=== PATIENT | male | born 1970 ===

== ENCOUNTER 2016-09-07 17:58 | Emergency (ER) | payer OTHER ==
--- NOTE | 2016-09-07 22:17 | ED ORDER SUMMARY ---
..... Patient: PHILIPP SALAZAR OrderSheet Formerly [facility] VisitID: [id number] [place] [address] 46y, M Registration Date/Time: 09/07/2016 ORDER SHEET Weight: 86.1 kg (stated) Allergies: Hydrocodone GENERAL ORDERS: CBC w Diff Urgent (20:52 09/07/2016 Asad Ortiz) (Ack 21:00 RKskyler) (22:02 HSoule) CMP Urgent (20:52 09/07/2016 Asad Ortiz) (Ack 21:00 Taduga) (22:02 HSoule) UA-Culture if indicated Urgent (20:52 09/07/2016 Asad Ortiz) (Ack 21:00 Taduga) (Cancelled: Patient Left22:36 HSoule) Amylase Urgent (20:52 09/07/2016 Asad Ortiz) (Ack 21:00 Bing) (22:02 HSoule) Lipase Urgent (20:52 09/07/2016 Asad Ortiz) (Ack 21:00 Taduga) (22:02 HSoule) MEDICATION ORDERS: GI Cocktail RED PO 35 mL with Lidocaine Viscous Mouth/Throat 10 mL, Diphenhydramine Oral 10 mL, Maalox Plus Oral 15 mL (NOW) (19:39 09/07/2016 Asad Ortiz) (19:43 HSoule) Demerol IM 50 mg (HIGH ALERT MEDICATION, NOW) (21:03 09/07/2016 Asad Ortiz) (Ack 21:10 HSoule) (21:21 HSoule) Pantoprazole Sodium PO 40 mg (NOW) (22:16 09/07/2016 Robert JOHN) (Ack 22:20 HSoule) (22:25 HSoule) IV FLUIDS: ORDER SHEET NOTES: [Electronically signed by Ashely Spears (22:36 09/07/2016)] [Electronically signed by Hitesh Evans MD (03:07 09/08/2016)] [Electronically locked/signed by Ashely Spears (22:36 09/07/2016)]
--- NOTE | 2016-09-07 22:17 | ED NURSING NOTES ---
Clinical Report - Nurses [facility] [address] [place] [place] [address] 09/07/2016 17:57 Patient: PHILIPP SALAZAR TRIAGE Triage time 18:Sep 07 2016. Acuity: LEVEL 3. Chief Complaint: ABDOMINAL PAIN. 18:03 09/07/16. 18:03 09/07/16. Alert. SEPSIS SCREEN: Sepsis Screen. Negative (no infection suspected/documented). --18:06 Thor Albert R.N. 18:03 09/07/16. BP: 125/78. HR: 74. RR: 18. O2 saturation: 100% on room air. Temp: 97.5 F (oral). Pain level now: 8/10. --18:06 Thor Albert R.N. Weight: 86.1 kg stated. Height/Length: 67 inches Per Patient. BMI: 29.8. --18:04 Thor Albert R.N. Medications Zantac Oral. --18:05 Thor Albert R.N. Medication/allergy information source: the patient. --18:06 Thor Albert R.N. Allergies Hydrocodone. --18:05 Thor Albert R.N. History Arrived by private vehicle. Historian: patient. Unaccompanied. Primary physician (NONE). 18:03 09/07/16. ( 2 days ago). Treatment DISABILITY EXAMINER: None. PAST MEDICAL HX: Immunizations: status is unknown. SOCIAL HX: Current every day light tobacco smoker (cigarette)- less than 1/2 a pack per day. History of drug use: heroin, methamphetamines. (2 days ago). No alcohol use. FALL RISK ASSESSMENT: Fall risk assessment completed. No fall risk identified. NUTRITIONAL RISK ASSESSMENT: The nutritional risk assessment revealed no deficiencies. FUNCTIONAL ASSESSMENT: Functional assessment: no impairments noted. LEARNING NEEDS ASSESSMENT: The learning needs assessment revealed no barriers. SKIN INTEGRITY ASSESSMENT: Skin integrity risk assessment completed. No skin integrity risk identified. --18:06 Thor Albert R.N. PROBLEMS: Sprain. Carpal Tunnel Syndrome. Tetanus Status. Immunizations. Right bundle branch block. Knee Injury. Gastroesophageal Reflux. Otitis Externa. Back Pain. --18:05 Thor Albert R.N. Drug Addiction. Substance Abuse. --18:05 Thor Albert R.N. ADDITIONAL SURGERIES: Dental Surgery. Tonsillectomy. --18:05 Thor Albert R.N. Assessment 18:03 09/07/16. --18:06 Thor Albert R.N. Interventions 18:09/07/16. 18:03 09/07/16. ID and allergy band on patient. To treatment room. --18:06 Thor Albert R.N. PHYSICAL ASSESSMENT 18:09/07/16. Ambulatory to room. GENERAL / NEURO / PSYCH: Alert. Oriented X 4. RESPIRATORY: Respirations not labored. CVS: Capillary refill less than 2 seconds. SKIN: Skin is warm and dry. --18:06 Thor Albert R.N. 18:09/07/16. GI / : ( Last BM was last night). --18:06 Thor Albert R.N. NURSING PROGRESS NOTES 18:09/07/16. The plan of care for this patient has been created. Head of bed elevated. Reassurance given. Two patient identifiers checked. Call light placed in reach. Side rails up x 2. Bed placed in lowest position. Brakes of bed on. --18:06 Thor Albert R.N. 18:09/07/16. Patient ready for evaluation- chart flagged and notification provided. --18:06 Thor Albert R.N. 19:13 09/07/16. ( Attempted two times for IV, unsuccessful attempts). --19:13 Thor Albert R.N. 19:14 09/07/16. Care transferred and report given. --19:14 Thor Albert R.N. ( Lab at bedside attempting to draw blood, unable to obtain specimen). --19:17 Ashely Spears 19:43 09/07/2016 GI COCKTAIL RED (Magnesium-Aluminum) PO Oral Suspension 35 mL given. Allergies verified and confirmed 5 rights. --19:43 Ashely Spears 19:43 09/07/16. BP: 113/75. HR: 72. RR: 20. O2 saturation: 99% on room air. Pain level now: 06/29. --19:43 Ashely Spears Reassessment after medication administered. Overall patient status- he states feels the same. --20:07 Ashely Spears ( Provider at bedside to obtain IV access). --20:13 Ashely Spears 20:49 09/07/16. BP: 107/70. HR: 61. RR: 20. O2 saturation: 98% on room air. Pain level now: 07/30. --20:49 Ashely Spears 21:21 09/07/2016 Demerol (Meperidine HCl) IM 50 mg given. Given in the left gluteus rhona. Allergies verified, confirmed 5 rights and sedative warning given to the patient. --21:21 Ashely Spears 22:01 09/07/16. BP: 120/67. HR: 70. RR: 18. O2 saturation: 100%. Pain level now: 06/29. --22:02 Ashely Spears Reassessment after medication administered. Overall patient status- he states feels better. --22:02 Ashely Spears 22:20 09/07/2016 Pantoprazole Sodium PO Tablets 40 mg given. Allergies verified and confirmed 5 rights. --22:25 Ashely Spears. DISPOSITION / DISCHARGE 22:09/07/16. Condition at departure: stable. The goals identified in the patient's plan of care were met. No learning barriers present. Discharge instructions provided and reviewed with the patient. Reviewed medication(s) side effects, precautions, dosing and course information. Prescription(s) given to the patient. Reviewed need for increased fluid intake. Patient verbalized understanding. Written instructions provided in Tristanian. ( Follow up with [facility] for next available appointment to obtain referral for ccnp. Drink plenty of fluids and rest. Avoid NSAIDS.). The patient was discharged by the physician. He was discharged home and accompanied by spouse. He left the Emergency Department ambulatory and via private vehicle. Spouse driving. FALL RISK ASSESSMENT: Fall risk assessment completed. No fall risk identified. --22:28 Ashely Spears 22:25 09/07/16. BP: 116/76. HR: 65. RR: 20. O2 saturation: 100% on room air. Temp: 98.9 F (oral). Pain level now: 07/30. --22:28 Ashely Spears. Locked/Released at 09/07/2016 22:36 by Ashely Spears,
--- NOTE | 2016-09-07 22:17 | ED CLINICAL REPORT ---
Clinical Report - Physicians/Mid Levels [facility] [address] ST[address] [place] [address] 09/07/2016 17:57 Patient: PHILIPP SALAZAR Time Seen: 18:55; initial patient contact. Arrived- By private vehicle. Historian- patient. HISTORY OF PRESENT ILLNESS Chief Complaint: ABDOMINAL PAIN. At its maximum, severity described as moderate. When seen in the E.D., severity described as moderate. Modifying factors. Not worsened by anything. Not relieved by anything. It is described as cramping. No radiation. It is described as located in the epigastric area and left upper quadrant and in the upper abdomen. This started about 2 days ago and is still present. It was abrupt in onset and has been intermittent. The patient has had nausea. No vomiting or diarrhea. Similar symptoms previously: Many times. ( this is been occurring intermittently for several months.). Recent medical care: Not recently seen/assessed. REVIEW OF SYSTEMS No constipation, black stools, difficulty with urination, pain with urination or bloody stools. No fever or chills. He reports a history of severe refluxfor which he takes Zantac. All systems otherwise negative, except as recorded above. PAST HISTORY Sprain. Carpal Tunnel Syndrome. Right bundle branch block. Knee Injury. Gastroesophageal Reflux. Otitis Externa. Back Pain. Drug Addiction. Substance Abuse. ADDITIONAL SURGERIES: Dental Surgery. Tonsillectomy. SOCIAL HISTORY Current every day smoker. History of IV drug use: heroin, methamphetamines. No alcohol use. ADDITIONAL NOTES The nursing notes have been reviewed. PHYSICAL EXAM Vital Signs: 09/07/2016 18:03 BP: 125/78. HR: 74. RR: 18. O2 saturation: 100%. Temp: 97.5 F. Pain level now: 8/10. Have been reviewed as normal. Appearance: Alert. Oriented X3. No acute distress. ENT: Pharynx normal. CVS: Normal heart rate and rhythm. Heart sounds normal. Respiratory: No respiratory distress. Breath sounds normal. Abdomen: Soft. Moderate tenderness in the epigastric area with guarding present. No rebound tenderness. Bowel sounds normal. No organomegaly. No mass. Back: Normal inspection. No CVA tenderness. Skin: Skin warm and dry. Normal skin color. Extremities: No lower extremity edema. Neuro: Oriented X 3. LABS, X-RAYS, AND EKG Laboratory Tests: CBC w Diff: (KECIA: 09/07/2016 20:45) ( MsgRcvd 09/07/2016 21:03) Final results Test Result Flag Units (Reference) WHITE BLOOD COUNT 8.6 K/uL (4.5-11.5) RED BLOOD COUNT 5.22 M/uL (4.50-5.90) HEMOGLOBIN 14.0 gm/dL (13.5-17.5) HEMATOCRIT 42.7 % (41.0-53.0) MEAN CELL VOLUME 82 fL (80-100) MEAN CORPUSCULAR HGB 27 pg (26-34) MEAN CORPUSCULAR HGB CONC 33 g/dL (31-37) RED CELL DISTRIBUTION WIDTH 15.3 H % (11.6-14.8) PLATELET COUNT 389 K/uL (150-400) NEUTROPHIL % 58.9 % (50-75) LYMPH % 32.5 % (25-40) MONO % 5.6 % (3-14) EOSINOPHIL % 1.6 % (0-4) BASOPHIL % 1.4 % (0-2) CMP: (KECIA: 09/07/2016 20:45) ( MsgRcvd 09/07/2016 21:12) Final results Test Result Flag Units (Reference) GLUCOSE 103 mg/dL (70-110) BUN 20 H mg/dL (7-18) CREATININE 1.6 H mg/dL (0.6-1.3) Estimated GFR 49.71 mL/min Estimated GFR- >60 mL/min Note: Persistent reduction over 3 months in eGFR<60 mL/min/1.73 m2 defines CKD. Patients with eGFR values>=60 mL/min/1.73 m2 may also have CKD if evidence ofpersistent proteinuria. Additional information may be foundat www.kidney.org. SODIUM 142 mmol/L (136-145) POTASSIUM 3.8 mmol/L (3.5-5.1) CHLORIDE 104 mmol/L (98-107) CARBON DIOXIDE 32 mmol/L (21-32) CALCIUM 9.4 mg/dL (8.5-10.1) TOTAL PROTEIN 8.1 g/dL (6.4-8.2) ALBUMIN 3.8 g/dL (3.3-5.0) BILIRUBIN, TOTAL 0.3 mg/dL (0.0-1.0) ALKALINE PHOSPHATASE 148 H U/L (46-116) AST (SGOT) 19 U/L (15-37) ALT (SGPT) 24 U/L (12-78) LIPASE 124 U/L (73-393) AMYLASE 33 U/L (25-115) . PROGRESS AND PROCEDURES Course of Care: 21:14 09/07/16. Mult attempts by [facility] staff for blood/IV access, no success. L fem vein accessed ga 1.5" needle for blood draw. No complications. Pt signed out to Dr. Dueñas. The case was discussed with Dr. Crowder at change of shift. We reviewed the patient's history and physical examination findings. I subsequently reviewed the patient's history with him and examined him and my findings were consistent with those noted by Dr. Crowder. I subsequently followed up on the results of the patient's labs and review the results of these with him. Patient/family counseled. Old medical records reviewed. Disposition: Discharged. Condition: stable. CLINICAL IMPRESSION Gastroesophageal reflux disease. Gastritis INSTRUCTIONS Drink plenty of fluids. Avoid alcohol and NSAIDS. NSAIDS include aspirin, ibuprofen (Advil) and naproxen (Aleve). Avoid salty and spicy foods. Warnings: Further evaluation is necessary. GENERAL WARNINGS: Return or contact your physician immediately if your condition worsens or changes unexpectedly, if not improving as expected, or if other problems arise. Prescription Medications: Prilosec 20 mg capsules: Take 1 capsule orally once daily. Dispense fifteen (15). No refills. Substitution is permissible. Follow-up: Follow up with a oracle distribution consultant- as recommended by your primary care physician. Understanding of the discharge instructions verbalized by patient. Follow-up with: [facility], , , [address] [place] [address], [place] [id number] Follow up in seven days. Call for the next available appointment. (Electronically signed by Hitesh Evans MD 09/08/2016 3:07)
--- NOTE | 2016-09-07 22:17 | ED NURSING NOTES ---
Clinical Report - Nurses [facility] [address] [address] 09/07/2016 17:57 Patient: PHILIPP SALAZAR TRIAGE Triage time 18:Sep 07 2016. Acuity: LEVEL 3. Chief Complaint: ABDOMINAL PAIN. 18:03 09/07/16. 18:03 09/07/16. Alert. SEPSIS SCREEN: Sepsis Screen. Negative (no infection suspected/documented). --18:06 Thor Albert R.N. 18:03 09/07/16. BP: 125/78. HR: 74. RR: 18. O2 saturation: 100% on room air. Temp: 97.5 F (oral). Pain level now: 8/10. --18:06 Thor Albert R.N. Weight: 86.1 kg stated. Height/Length: 67 inches Per Patient. BMI: 29.8. --18:04 Thor Albert R.N. Medications Zantac Oral. --18:05 Thor Albert R.N. Medication/allergy information source: the patient. --18:06 Thor Albert R.N. Allergies Hydrocodone. --18:05 Thor Albert R.N. History Arrived by private vehicle. Historian: patient. Unaccompanied. Primary physician (NONE). 18:03 09/07/16. ( 2 days ago). Treatment MANAGER WASTEWATER: None. PAST MEDICAL HX: Immunizations: status is unknown. SOCIAL HX: Current every day light tobacco smoker (cigarette)- less than 1/2 a pack per day. History of drug use: heroin, methamphetamines. (2 days ago). No alcohol use. FALL RISK ASSESSMENT: Fall risk assessment completed. No fall risk identified. NUTRITIONAL RISK ASSESSMENT: The nutritional risk assessment revealed no deficiencies. FUNCTIONAL ASSESSMENT: Functional assessment: no impairments noted. LEARNING NEEDS ASSESSMENT: The learning needs assessment revealed no barriers. SKIN INTEGRITY ASSESSMENT: Skin integrity risk assessment completed. No skin integrity risk identified. --18:06 Thor Albert R.N. PROBLEMS: Sprain. Carpal Tunnel Syndrome. Tetanus Status. Immunizations. Right bundle branch block. Knee Injury. Gastroesophageal Reflux. Otitis Externa. Back Pain. --18:05 Thor Albert R.N. Drug Addiction. Substance Abuse. --18:05 Thor Albert R.N. ADDITIONAL SURGERIES: Dental Surgery. Tonsillectomy. --18:05 Thor Albert R.N. Assessment 18:03 09/07/16. --18:06 Thor Albert R.N. Interventions 18:09/07/16. 18:03 09/07/16. ID and allergy band on patient. To treatment room. --18:06 Thor Albert R.N. PHYSICAL ASSESSMENT 18:09/07/16. Ambulatory to room. GENERAL / NEURO / PSYCH: Alert. Oriented X 4. RESPIRATORY: Respirations not labored. CVS: Capillary refill less than 2 seconds. SKIN: Skin is warm and dry. --18:06 Thor Albert R.N. 18:09/07/16. GI / : ( Last BM was last night). --18:06 Thor Albert R.N. NURSING PROGRESS NOTES 18:09/07/16. The plan of care for this patient has been created. Head of bed elevated. Reassurance given. Two patient identifiers checked. Call light placed in reach. Side rails up x 2. Bed placed in lowest position. Brakes of bed on. --18:06 Thor Albert R.N. 18:09/07/16. Patient ready for evaluation- chart flagged and notification provided. --18:06 Thor Albert R.N. 19:13 09/07/16. ( Attempted two times for IV, unsuccessful attempts). --19:13 Thor Albert R.N. 19:14 09/07/16. Care transferred and report given. --19:14 Thor Albert R.N. ( Lab at bedside attempting to draw blood, unable to obtain specimen). --19:17 Ashely Spears 19:43 09/07/2016 GI COCKTAIL RED (Magnesium-Aluminum) PO Oral Suspension 35 mL given. Allergies verified and confirmed 5 rights. --19:43 Ashely Spears 19:43 09/07/16. BP: 113/75. HR: 72. RR: 20. O2 saturation: 99% on room air. Pain level now: 06/29. --19:43 Ashely Spears Reassessment after medication administered. Overall patient status- he states feels the same. --20:07 Ashely Spears ( Provider at bedside to obtain IV access). --20:13 Ashely Spears 20:49 09/07/16. BP: 107/70. HR: 61. RR: 20. O2 saturation: 98% on room air. Pain level now: 07/30. --20:49 Ashely Spears 21:21 09/07/2016 Demerol (Meperidine HCl) IM 50 mg given. Given in the left gluteus rhona. Allergies verified, confirmed 5 rights and sedative warning given to the patient. --21:21 Ashely Spears 22:01 09/07/16. BP: 120/67. HR: 70. RR: 18. O2 saturation: 100%. Pain level now: 06/29. --22:02 Ashely Spears Reassessment after medication administered. Overall patient status- he states feels better. --22:02 Ashely Spears 22:20 09/07/2016 Pantoprazole Sodium PO Tablets 40 mg given. Allergies verified and confirmed 5 rights. --22:25 Ashely Spears. DISPOSITION / DISCHARGE 22:09/07/16. Condition at departure: stable. The goals identified in the patient's plan of care were met. No learning barriers present. Discharge instructions provided and reviewed with the patient. Reviewed medication(s) side effects, precautions, dosing and course information. Prescription(s) given to the patient. Reviewed need for increased fluid intake. Patient verbalized understanding. Written instructions provided in [place] Zealander. ( Follow up with [facility] for next available appointment to obtain referral for percher. Drink plenty of fluids and rest. Avoid NSAIDS.). The patient was discharged by the physician. He was discharged home and accompanied by spouse. He left the Emergency Department ambulatory and via private vehicle. Spouse driving. FALL RISK ASSESSMENT: Fall risk assessment completed. No fall risk identified. --22:28 Ashely Spears 22:25 09/07/16. BP: 116/76. HR: 65. RR: 20. O2 saturation: 100% on room air. Temp: 98.9 F (oral). Pain level now: 07/30. --22:28 Ashely Spears. Locked/Released at 09/07/2016 22:36 by Ashely Spears,
--- NOTE | 2016-09-07 22:17 | ED ORDER SUMMARY ---
..... Patient: PHILIPP SALAZAR OrderSheet [facility] VisitID: [id number] [place] [address] 46y, M Registration Date/Time: 09/07/2016 ORDER SHEET Weight: 86.1 kg (stated) Allergies: Hydrocodone GENERAL ORDERS: CBC w Diff Urgent (20:52 09/07/2016 Asad Ortiz) (Ack 21:00 RKskyler) (22:02 HSoule) CMP Urgent (20:52 09/07/2016 Asad Ortiz) (Ack 21:00 Taduga) (22:02 HSoule) UA-Culture if indicated Urgent (20:52 09/07/2016 Asad Ortiz) (Ack 21:00 Tad[place]) (Cancelled: Patient Left22:36 HSoule) Amylase Urgent (20:52 09/07/2016 Asad Ortiz) (Ack 21:00 Bing) (22:02 HSoule) Lipase Urgent (20:52 09/07/2016 Asad Ortiz) (Ack 21:00 Taduga) (22:02 HSoule) MEDICATION ORDERS: GI Cocktail RED PO 35 mL with Lidocaine Viscous Mouth/Throat 10 mL, Diphenhydramine Oral 10 mL, Maalox Plus Oral 15 mL (NOW) (19:39 09/07/2016 Asad Ortiz) (19:43 HSoule) Demerol IM 50 mg (HIGH ALERT MEDICATION, NOW) (21:03 09/07/2016 Asad Ortiz) (Ack 21:10 HSoule) (21:21 HSoule) Pantoprazole Sodium PO 40 mg (NOW) (22:16 09/07/2016 Robert JOHN) (Ack 22:20 HSoule) (22:25 HSoule) IV FLUIDS: ORDER SHEET NOTES: [Electronically signed by Ashely Spears (22:36 09/07/2016)] [Electronically signed by Hitesh Evans MD (03:07 09/08/2016)] [Electronically locked/signed by Ashely Spears (22:36 09/07/2016)]
--- NOTE | 2016-09-07 22:17 | ED CLINICAL REPORT ---
Clinical Report - Physicians/Mid Levels [facility] [address] [place] [address] 09/07/2016 17:57 Patient: PHILIPP SALAZAR Time Seen: 18:55; initial patient contact. Arrived- By private vehicle. Historian- patient. HISTORY OF PRESENT ILLNESS Chief Complaint: ABDOMINAL PAIN. At its maximum, severity described as moderate. When seen in the E.D., severity described as moderate. Modifying factors. Not worsened by anything. Not relieved by anything. It is described as cramping. No radiation. It is described as located in the epigastric area and left upper quadrant and in the upper abdomen. This started about 2 days ago and is still present. It was abrupt in onset and has been intermittent. The patient has had nausea. No vomiting or diarrhea. Similar symptoms previously: Many times. ( this is been occurring intermittently for several months.). Recent medical care: Not recently seen/assessed. REVIEW OF SYSTEMS No constipation, black stools, difficulty with urination, pain with urination or bloody stools. No fever or chills. He reports a history of severe refluxfor which he takes Zantac. All systems otherwise negative, except as recorded above. PAST HISTORY Sprain. Carpal Tunnel Syndrome. Right bundle branch block. Knee Injury. Gastroesophageal Reflux. Otitis Externa. Back Pain. Drug Addiction. Substance Abuse. ADDITIONAL SURGERIES: Dental Surgery. Tonsillectomy. SOCIAL HISTORY Current every day smoker. History of IV drug use: heroin, methamphetamines. No alcohol use. ADDITIONAL NOTES The nursing notes have been reviewed. PHYSICAL EXAM Vital Signs: 09/07/2016 18:03 BP: 125/78. HR: 74. RR: 18. O2 saturation: 100%. Temp: 97.5 F. Pain level now: 8/10. Have been reviewed as normal. Appearance: Alert. Oriented X3. No acute distress. ENT: Pharynx normal. CVS: Normal heart rate and rhythm. Heart sounds normal. Respiratory: No respiratory distress. Breath sounds normal. Abdomen: Soft. Moderate tenderness in the epigastric area with guarding present. No rebound tenderness. Bowel sounds normal. No organomegaly. No mass. Back: Normal inspection. No CVA tenderness. Skin: Skin warm and dry. Normal skin color. Extremities: No lower extremity edema. Neuro: Oriented X 3. LABS, X-RAYS, AND EKG Laboratory Tests: CBC w Diff: (KECIA: 09/07/2016 20:45) ( MsgRcvd 09/07/2016 21:03) Final results Test Result Flag Units (Reference) WHITE BLOOD COUNT 8.6 K/uL (4.5-11.5) RED BLOOD COUNT 5.22 M/uL (4.50-5.90) HEMOGLOBIN 14.0 gm/dL (13.5-17.5) HEMATOCRIT 42.7 % (41.0-53.0) MEAN CELL VOLUME 82 fL (80-100) MEAN CORPUSCULAR HGB 27 pg (26-34) MEAN CORPUSCULAR HGB CONC 33 g/dL (31-37) RED CELL DISTRIBUTION WIDTH 15.3 H % (11.6-14.8) PLATELET COUNT 389 K/uL (150-400) NEUTROPHIL % 58.9 % (50-75) LYMPH % 32.5 % (25-40) MONO % 5.6 % (3-14) EOSINOPHIL % 1.6 % (0-4) BASOPHIL % 1.4 % (0-2) CMP: (KECIA: 09/07/2016 20:45) ( MsgRcvd 09/07/2016 21:12) Final results Test Result Flag Units (Reference) GLUCOSE 103 mg/dL (70-110) BUN 20 H mg/dL (7-18) CREATININE 1.6 H mg/dL (0.6-1.3) Estimated GFR 49.71 mL/min Estimated GFR- >60 mL/min Note: Persistent reduction over 3 months in eGFR<60 mL/min/1.73 m2 defines CKD. Patients with eGFR values>=60 mL/min/1.73 m2 may also have CKD if evidence ofpersistent proteinuria. Additional information may be foundat www.[email or web address].org. SODIUM 142 mmol/L (136-145) POTASSIUM 3.8 mmol/L (3.5-5.1) CHLORIDE 104 mmol/L (98-107) CARBON DIOXIDE 32 mmol/L (21-32) CALCIUM 9.4 mg/dL (8.5-10.1) TOTAL PROTEIN 8.1 g/dL (6.4-8.2) ALBUMIN 3.8 g/dL (3.3-5.0) BILIRUBIN, TOTAL 0.3 mg/dL (0.0-1.0) ALKALINE PHOSPHATASE 148 H U/L (46-116) AST (SGOT) 19 U/L (15-37) ALT (SGPT) 24 U/L (12-78) LIPASE 124 U/L (73-393) AMYLASE 33 U/L (25-115) . PROGRESS AND PROCEDURES Course of Care: 21:14 09/07/16. Mult attempts by [facility] staff for blood/IV access, no success. L fem vein accessed ga 1.5" needle for blood draw. No complications. Pt signed out to Dr. Dueñas. The case was discussed with Dr. Crowder at change of shift. We reviewed the patient's history and physical examination findings. I subsequently reviewed the patient's history with him and examined him and my findings were consistent with those noted by Dr. Crowder. I subsequently followed up on the results of the patient's labs and review the results of these with him. Patient/family counseled. Old medical records reviewed. Disposition: Discharged. Condition: stable. CLINICAL IMPRESSION Gastroesophageal reflux disease. Gastritis INSTRUCTIONS Drink plenty of fluids. Avoid alcohol and NSAIDS. NSAIDS include aspirin, ibuprofen (Advil) and naproxen (Aleve). Avoid salty and spicy foods. Warnings: Further evaluation is necessary. GENERAL WARNINGS: Return or contact your physician immediately if your condition worsens or changes unexpectedly, if not improving as expected, or if other problems arise. Prescription Medications: Prilosec 20 mg capsules: Take 1 capsule orally once daily. Dispense fifteen (15). No refills. Substitution is permissible. Follow-up: Follow up with a bariatric physician- as recommended by your primary care physician. Understanding of the discharge instructions verbalized by patient. Follow-up with: [facility], , , [address] [place] [address], [place] [id number] Follow up in seven days. Call for the next available appointment. (Electronically signed by Hitesh Evans MD 09/08/2016 3:07)
--- NOTE | 2016-09-08 03:07 | ED MAR SUMMARY ---
..... Medication Administration Record [facility] [address] [place] [address] Patient: PHILIPP SALAZAR Visit ID: [id number] 46y, M Weight: 86.1 kg Height/Length: 67 in BMI: 29.8 ALLERGIES: Hydrocodone Given 19:43 09/07/2016 Ashely Spears, Medication Administered: GI COCKTAIL RED [PO] (MAGNESIUM-ALUMINUM), Dose: 35 mL Oral Suspension PO. Medication Ordered: GI Cocktail RED PO 35 mL with Lidocaine Viscous Mouth/Throat 10 mL, Diphenhydramine Oral 10 mL, Maalox Plus Oral 15 mL (NOW). Given 21:21 09/07/2016 Ashely Spears, Medication Administered: DEMEROL [IM] (MEPERIDINE HCL), Dose: 50 mg IM. Medication Ordered: Demerol IM 50 mg (HIGH ALERT MEDICATION, NOW). Given 22:20 09/07/2016 Ashely Spears, Medication Administered: PANTOPRAZOLE SODIUM [PO], Dose: 40 mg Tablets PO. Medication Ordered: Pantoprazole Sodium PO 40 mg (NOW).
--- NOTE | 2016-09-08 03:07 | ED DISCHARGE INSTRUCTIONS ---
Patient: PHILIPP SALAZAR General Instructions [facility] VisitID: [id number] [place] [address] 46y, M Registration Date/Time: 09/07/2016 Gastroesophageal reflux disease. Gastritis INSTRUCTIONS Drink plenty of fluids. Avoid alcohol and NSAIDS. NSAIDS include aspirin, ibuprofen (Advil) and naproxen (Aleve). Avoid salty and spicy foods. Warnings: Further evaluation is necessary. GENERAL WARNINGS: Return or contact your physician immediately if your condition worsens or changes unexpectedly, if not improving as expected, or if other problems arise. Prescription Medications: Prilosec 20 mg capsules: Take 1 capsule orally once daily. Dispense fifteen (15). No refills. Substitution is permissible. 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 Understanding of the discharge instructions verbalized by patient. Follow-up with: [facility], , , [address] [place] [address] Follow up in seven days. Call for the next available appointment. ADDITIONAL INFORMATION Gastritis Versus Ulcer (No Antibiotic Tx) The symptoms of gastritis and peptic ulcer are very similar. Both can cause a dull ache or burning pain in the upper abdomen. Other symptoms include nausea, vomiting, loss of appetite, and belching or bloating. Blood in the vomit or stools (red or black) is a sign of bleeding in the stomach. This requires immediate medical attention. A Peptic Ulcer is an open sore in the lining of the stomach or duodenum (upper intestine). The most common cause of peptic ulcer disease is a bacterial infection (H pylori) in the stomach. Another common cause is taking anti-inflammatory medications (such as ibuprofen, prednisone, and aspirin). Gastritis is an irritation of the stomach lining. It can be acute (recent) or chronic (lasting a long time). Gastritis can be caused by overuse of alcohol or anti-inflammatory medications (such as aspirin, ibuprofen, prednisone). H pyloriinfection can also cause chronic gastritis. Tests for H pyloriare used to screen for bacterial infection. If no infection is found, ulcer and gastritis can be treated by stopping the cause, such as anti-inflammatory medications, alcohol, caffeine, and tobacco, and treating with antacids plus an acid isidro medication. If H pylori infection is found, antibiotics will be prescribed along with an acid isidro. Persons 55 years and older may undergo other tests before treatment is started. Two common tests are used to evaluate your symptoms. An upper GI series is an x-ray taken after you drink a chalky liquid called barium. This coats the stomach and allows an ulcer to show up on the x-ray. Another test is called endoscopy during which a long thin tube called an endoscope is passed down your throat to the stomach. A camera at the end of the scope allows the doctor to view inside the stomach to check the cause of your symptoms. Home Care: Take the prescribed acid isidro medication for the full course of treatment even if you begin to feel better sooner. This medication can take up to several days to fully control your symptoms. If you cant afford the prescribed medication, you can try [id number] acid blockers, such as Pepcid AC, Tagamet, Zantac, or Aciphex. If these do not relieve your symptoms, a stronger acid-isidro can be tried, such as Prilosec OTC. If you have been prescribed an antibiotic to treat H pyloriinfection, finish the full course of medication. Do so even if you begin to feel better sooner. If you stop the medication too soon, the infection can return and be harder to treat. You can use antacids, such as Tums, Rolaids, Mylanta, or Maalox, for pain. This will be useful the first few days after starting acid blockers when the blockers havent started working yet. Follow the directions on the label. Liquid antacids may work better than tablets. Note that antacids can interfere with absorption of certain medications. Specifically, do not take Tagamet (cimetidine), Zantac (ranitidine), or Carafate (sucralfate) within 1 hour of taking an antacid. Talk with your pharmacist if you have any questions. Although foods do not cause an ulcer, symptoms can be worsened by certain foods. Limit or avoid fatty, fried, and spicy foods, as well as coffee, chocolate, mint, and foods with high acid content such as tomatoes and citrus fruit and juices (orange, grapefruit, lemon). Avoid alcohol, caffeine, and tobacco, which can delay healing. Avoid aspirin and anti-inflammatory medications such as ibuprofen (Advil, Motrin) and naproxen (Naprosyn, Aleve). Acetaminophen (Tylenol) is safe to use. Do not take more than the amount listed on the label. Follow Up with your doctor or as advised. Further testing may be needed. If you do not begin to improve over the next 4 days, contact your doctor. If you had tests, youll be notified of any new findings that affect your care. Get Prompt Medical Attention if any of the following occur: Stomach pain gets worse or moves to the lower right abdomen (appendix area) Chest pain appears or gets worse, or spreads to the back, neck, shoulder, or arm Frequent vomiting (cant keep down liquids) Blood in the stool or vomit (red or black in color) Feeling weak or dizzy, fainting, or trouble breathing Fever of 100.4F (38C) or higher, or as directed by your healthcare provider GERD (Adult) The esophagus is a tube that carries food from the mouth to the stomach. A valve at the lower end of the esophagus prevents stomach acid from flowing upward. If this valve does not work properly, acid from the stomach enters the esophagus. If this occurs over and over, the acid will injure the lining of the esophagus. This condition is called GERD (gastroesophageal reflux disease) or acid reflux. When stomach acid flows upward into the esophagus, it causes burning, pressure or sharp pain in the upper abdomen or mid to lower chest. The pain can spread to the neck, back, or shoulder, similar to heart pain (angina). There may be belching, an acid taste in the back of the throat, chronic cough, or sore throat or hoarseness. GERD symptoms often occur during the day after a big meal, but it can also occur at night when lying down. Smoking,as well as drinking alcohol, increases the risk of GERD. GERD is a chronic condition. Once it begins, it is often lifelong. Treatment includes changes in eating habits and the use of acid isidro medications to decrease the amount of acid in the stomach. Symptoms often improve with treatment, but if treatment is stopped, the symptoms usually return after a few months. So most persons with GERD will need to continue treatment. Home Care: Take the prescribed acid isidro medication for the full course of treatment even if you begin to feel better sooner. This medication can take up to several days to fully control your symptoms. If you cant afford the prescribed medication, you can try [id number] acid blockers, such as Pepcid AC, Tagamet, Zantac, or Aciphex. If these do not relieve your symptoms, a stronger acid-isidro can be tried, such as Prilosec OTC. You can use antacids, such as Tums, Rolaids, Mylanta, or Maalox, for pain. This will be useful the first few days after starting acid blockers when the blockers havent started working yet. Follow the directions on the label. Liquid antacids may work better than tablets. Note that antacids can interfere with absorption of certain medications. Specifically, do not take Tagamet (cimetidine), Zantac (ranitidine), or Carafate (sucralfate) within 1 hour of taking an antacid. Talk with your pharmacist if you have any questions. Limit or avoid fatty, fried, and spicy foods, as well as coffee, chocolate, mint, and foods with high acid content such as tomatoes and citrus fruit and juices (orange, grapefruit, lemon). Avoid alcohol and smoking. Dont eat large meals, especially at night. Frequent, smaller meals are best. Do not lie down right after eating. And dont eat anything 3 hours before going to bed. If you are overweight, losing weight will reduce symptoms. Women should not wear corsets or girdles because this increases pressure on the stomach and worsens reflux. If your symptoms occur during sleep, use a foam wedge to elevate your upper body (not just your head.) Or, place 4" blocks under the head of your bed. Follow Up with your doctor or as advised by our staff. Further testing may be needed. If you do not begin to improve over the next 4 days, contact your doctor. If you had an x-ray, CT scan, or ECG (electrocardiogram), it will be reviewed by a specialist. Youll be notified of any new findings that affect your care. Get Prompt Medical Attention if any of the following occur: Stomach pain gets worse or moves to the lower right abdomen (appendix area) Chest pain appears or gets worse, or spreads to the back, neck, shoulder, or arm Frequent vomiting (cant keep down liquids) Blood in the stool or vomit (red or black in color) Feeling weak or dizzy, fainting, or trouble breathing Fever of 100.4F (38C) or higher, or as directed by your healthcare provider [place] Diet A bland diet is used for patients with an upset stomach. It consists of foods that are mild and easy to digest. It is better to eat small frequent meals rather than three large meals a day. BEVERAGES OK: Fruit juices, non-caffeinated teas and coffee, non-carbonated hartmann AVOID: Carbonated beverage, caffeinated tea and coffee, all alcoholic beverages BREAD OK: Refined white, wheat or rye bread, zoila or soda crackers, Erma toast, plain rolls, bagels AVOID: Whole-grain bread CEREAL OK: Refined cereals: cooked or ready to eat AVOID: Whole grain cereals and granola, or those containing bran, seeds or nuts DESSERTS OK: Peanut butter and all others except those to "avoid" AVOID: Chocolate, cocoa, coconut, popcorn, nuts, seeds, jam, marmalade FRUITS OK: Canned, cooked, frozen or fresh fruits without seeds or tough skin AVOID: Olives, skin and seeds of fruit MEATS OK: All fresh or preserved meat, fish and fowl AVOID: Any that are prepared with those spices to "avoid" CHEESE & EGGS OK: Eggs, cottage cheese, cream cheese, other cheeses AVOID: All cheeses made with those spices to "avoid" POTATOES & PASTA OK: Potato, rice, macaroni, noodles, spaghetti AVOID: None SOUPS OK: All soups without heavy seasoning AVOID: Soups made with those spices to "avoid" VEGETABLES OK: Canned, cooked, fresh or frozen mildly flavored vegetables without seeds, skins or coarse fiber AVOID: Vegetables prepared with those spices to "avoid"; skin and seeds of vegetables and those with coarse fiber SPICES OK: Salt, lemon and [place] juice, vinegar, all extracts, marina, cinnamon, thyme, mace, allspice, paprika AVOID: Olin powder, cloves, pepper, seed spices, garlic, gravy pickles, highly seasoned salad dressings Omeprazole Magnesium Gastro-resistant tablet What is this medicine? OMEPRAZOLE (oh ME pray zol) prevents the production of acid in the stomach. It is used to treat the symptoms of heartburn. You can buy this medicine without a prescription. This product is not for long-term use, unless otherwise directed by your doctor or health childcare attendant. How should I use this medicine? Take this medicine by mouth. Follow the directions on the product label. If you are taking this medicine without a prescription, take one tablet every day. Do not use for longer than 14 days or repeat a course of treatment more often than every 4 months unless directed by a doctor or healthcare professional. Take your dose at regular intervals every 24 hours. Swallow the tablet whole with a drink of water. Do not crush, break or chew. This medicine works best if taken on an empty stomach 30 minutes before breakfast. If you are using this medicine with the prescription of your doctor or healthcare professional, follow the directions you were given. Do not take your medicine more often than directed. Talk to your building code inspector regarding the use of this medicine in children. Special care may be needed. What side effects may I notice from receiving this medicine? Side effects that you should report to your doctor or health childcare attendant as soon as possible: allergic reactions like skin rash, itching or hives, swelling of the face, lips, or tongue bone, muscle or joint pain breathing problems chest pain or chest tightness dark yellow or brown urine diarrhea dizziness fast, irregular heartbeat feeling faint or lightheaded fever or sore throat muscle spasm palpitations redness, blistering, peeling or loosening of the skin, including inside the mouth seizures tremors unusual bleeding or bruising unusually weak or tired yellowing of the eyes or skin Side effects that usually do not require medical attention (Report these to your doctor or health childcare attendant if they continue or are bothersome.): constipation dry mouth headache loose stools nausea What may interact with this medicine? Do not take this medicine with any of the following medications: atazanavir clopidogrel nelfinavir This medicine may also interact with the following medications: ampicillin certain medicines for anxiety or sleep certain medicines that treat or prevent blood clots like warfarin cyclosporine diazepam digoxin disulfiram iron salts phenytoin prescription medicine for fungal or yeast infection like itraconazole, ketoconazole, voriconazole saquinavir tacrolimus What if I miss a dose? If you miss a dose, take it as soon as you can. If it is almost time for your next dose, take only that dose. Do not take double or extra doses. Where should I keep my medicine? Keep out of the reach of children. Store at room temperature between 20 and 25 degrees C (68 and 77 degrees F). Protect from light and moisture. Throw away any unused medicine after the expiration date. What should I tell my health care provider before I take this medicine? They need to know if you have any of these conditions: black or bloody stools chest pain difficulty swallowing have had heartburn for over 3 months have heartburn with dizziness, lightheadedness or sweating liver disease stomach pain unexplained weight loss vomiting with blood wheezing an unusual or allergic reaction to omeprazole, other medicines, foods, dyes, or preservatives or trying to get breast-feeding What should I watch for while using this medicine? It can take several days before your heartburn gets better. Check with your doctor or health childcare attendant if your condition does not start to get better, or if it gets worse. Do not treat diarrhea with over the counter products. Contact your doctor if you have diarrhea that lasts more than 2 days or if it is severe and watery. Do not treat yourself for heartburn with this medicine for more than 14 days in a row. You should only use this medicine for a 2-week treatment period once every 4 months. If your symptoms return shortly after your therapy is complete, or within the 4 month time frame, call your doctor or health childcare attendant. You have been given the following additional information: Gastritis Vs. Ulcer GERD (Adult) Diet, [place] (Adult) Omeprazole Magnesium Gastro-resistant tablet (Electronically signed by Hitesh Evans MD 09/08/2016 3:07)
--- NOTE | 2016-09-08 03:07 | ED MAR SUMMARY ---
..... Medication Administration Record [facility] [address] [place] [address] Patient: PHILIPP SALAZAR Visit ID: [id number] 46y, M Weight: 86.1 kg Height/Length: 67 in BMI: 29.8 ALLERGIES: Hydrocodone Given 19:43 09/07/2016 Ashely Spears, Medication Administered: GI COCKTAIL RED [PO] (MAGNESIUM-ALUMINUM), Dose: 35 mL Oral Suspension PO. Medication Ordered: GI Cocktail RED PO 35 mL with Lidocaine Viscous Mouth/Throat 10 mL, Diphenhydramine Oral 10 mL, Maalox Plus Oral 15 mL (NOW). Given 21:21 09/07/2016 Ashely Spears, Medication Administered: DEMEROL [IM] (MEPERIDINE HCL), Dose: 50 mg IM. Medication Ordered: Demerol IM 50 mg (HIGH ALERT MEDICATION, NOW). Given 22:20 09/07/2016 Ashely Spears, Medication Administered: PANTOPRAZOLE SODIUM [PO], Dose: 40 mg Tablets PO. Medication Ordered: Pantoprazole Sodium PO 40 mg (NOW).
--- NOTE | 2016-09-08 03:07 | ED MED RECONCILIATION SUMMARY ---
Patient: PHILIPP SALAZAR Medication Reconciliation Report [facility] VisitID: [id number] [address] [place] [address] 46y, M Registration Date/Time: 09/07/2016 Weight: 86.1 kg Height/Length: 67 in. BMI: 29.8 ALLERGIES: Hydrocodone The patient's Home Medications are listed below: THE FOLLOWING MEDICATIONS NEED TO BE RECONCILED: Zantac Oral The source(s) of the original Home Medication information: patient The following Medications were given to the patient in the Emergency Department: GI COCKTAIL RED [PO] PO 35 mL, administered: 09/07/2016 7:43:00 PM Demerol [IM] IM 50 mg, administered: 09/07/2016 9:21:00 PM Pantoprazole Sodium [PO] PO 40 mg, administered: 09/07/2016 10:20:00 PM The following Medications were prescribed to the patient: Prilosec 20 mg capsules: Take 1 capsule orally once daily. Dispense fifteen (15). No refills. Substitution is permissible. -- Hitesh Evans MD
--- NOTE | 2016-09-08 03:07 | ED DISCHARGE INSTRUCTIONS ---
Patient: PHILIPP SALAZAR General Instructions [facility] VisitID: [id number] [place] [address] 46y, M Registration Date/Time: 09/07/2016 Gastroesophageal reflux disease. Gastritis INSTRUCTIONS Drink plenty of fluids. Avoid alcohol and NSAIDS. NSAIDS include aspirin, ibuprofen (Advil) and naproxen (Aleve). Avoid salty and spicy foods. Warnings: Further evaluation is necessary. GENERAL WARNINGS: Return or contact your physician immediately if your condition worsens or changes unexpectedly, if not improving as expected, or if other problems arise. Prescription Medications: Prilosec 20 mg capsules: Take 1 capsule orally once daily. Dispense fifteen (15). No refills. Substitution is permissible. Follow-up: Follow up with a wellness educator- as recommended by your primary care physician. Understanding of the discharge instructions verbalized by patient. Follow-up with: [facility], , , [address] [place] [address] Follow up in seven days. Call for the next available appointment. ADDITIONAL INFORMATION Gastritis Versus Ulcer (No Antibiotic Tx) The symptoms of gastritis and peptic ulcer are very similar. Both can cause a dull ache or burning pain in the upper abdomen. Other symptoms include nausea, vomiting, loss of appetite, and belching or bloating. Blood in the vomit or stools (red or black) is a sign of bleeding in the stomach. This requires immediate medical attention. A Peptic Ulcer is an open sore in the lining of the stomach or duodenum (upper intestine). The most common cause of peptic ulcer disease is a bacterial infection (H pylori) in the stomach. Another common cause is taking anti-inflammatory medications (such as ibuprofen, prednisone, and aspirin). Gastritis is an irritation of the stomach lining. It can be acute (recent) or chronic (lasting a long time). Gastritis can be caused by overuse of alcohol or anti-inflammatory medications (such as aspirin, ibuprofen, prednisone). H pyloriinfection can also cause chronic gastritis. Tests for H pyloriare used to screen for bacterial infection. If no infection is found, ulcer and gastritis can be treated by stopping the cause, such as anti-inflammatory medications, alcohol, caffeine, and tobacco, and treating with antacids plus an acid isidro medication. If H pylori infection is found, antibiotics will be prescribed along with an acid isidro. Persons 55 years and older may undergo other tests before treatment is started. Two common tests are used to evaluate your symptoms. An upper GI series is an x-ray taken after you drink a chalky liquid called barium. This coats the stomach and allows an ulcer to show up on the x-ray. Another test is called endoscopy during which a long thin tube called an endoscope is passed down your throat to the stomach. A camera at the end of the scope allows the doctor to view inside the stomach to check the cause of your symptoms. Home Care: Take the prescribed acid isidro medication for the full course of treatment even if you begin to feel better sooner. This medication can take up to several days to fully control your symptoms. If you cant afford the prescribed medication, you can try vyju-vxx-ebzomlc acid blockers, such as Pepcid AC, Tagamet, Zantac, or Aciphex. If these do not relieve your symptoms, a stronger acid-isidro can be tried, such as Prilosec OTC. If you have been prescribed an antibiotic to treat H pyloriinfection, finish the full course of medication. Do so even if you begin to feel better sooner. If you stop the medication too soon, the infection can return and be harder to treat. You can use antacids, such as Tums, Rolaids, Mylanta, or Maalox, for pain. This will be useful the first few days after starting acid blockers when the blockers havent started working yet. Follow the directions on the label. Liquid antacids may work better than tablets. Note that antacids can interfere with absorption of certain medications. Specifically, do not take Tagamet (cimetidine), Zantac (ranitidine), or Carafate (sucralfate) within 1 hour of taking an antacid. Talk with your pharmacist if you have any questions. Although foods do not cause an ulcer, symptoms can be worsened by certain foods. Limit or avoid fatty, fried, and spicy foods, as well as coffee, chocolate, mint, and foods with high acid content such as tomatoes and citrus fruit and juices (orange, grapefruit, lemon). Avoid alcohol, caffeine, and tobacco, which can delay healing. Avoid aspirin and anti-inflammatory medications such as ibuprofen (Advil, Motrin) and naproxen (Naprosyn, Aleve). Acetaminophen (Tylenol) is safe to use. Do not take more than the amount listed on the label. Follow Up with your doctor or as advised. Further testing may be needed. If you do not begin to improve over the next 4 days, contact your doctor. If you had tests, youll be notified of any new findings that affect your care. Get Prompt Medical Attention if any of the following occur: Stomach pain gets worse or moves to the lower right abdomen (appendix area) Chest pain appears or gets worse, or spreads to the back, neck, shoulder, or arm Frequent vomiting (cant keep down liquids) Blood in the stool or vomit (red or black in color) Feeling weak or dizzy, fainting, or trouble breathing Fever of 100.4F (38C) or higher, or as directed by your healthcare provider GERD (Adult) The esophagus is a tube that carries food from the mouth to the stomach. A valve at the lower end of the esophagus prevents stomach acid from flowing upward. If this valve does not work properly, acid from the stomach enters the esophagus. If this occurs over and over, the acid will injure the lining of the esophagus. This condition is called GERD (gastroesophageal reflux disease) or acid reflux. When stomach acid flows upward into the esophagus, it causes burning, pressure or sharp pain in the upper abdomen or mid to lower chest. The pain can spread to the neck, back, or shoulder, similar to heart pain (angina). There may be belching, an acid taste in the back of the throat, chronic cough, or sore throat or hoarseness. GERD symptoms often occur during the day after a big meal, but it can also occur at night when lying down. Smoking,as well as drinking alcohol, increases the risk of GERD. GERD is a chronic condition. Once it begins, it is often lifelong. Treatment includes changes in eating habits and the use of acid isidro medications to decrease the amount of acid in the stomach. Symptoms often improve with treatment, but if treatment is stopped, the symptoms usually return after a few months. So most persons with GERD will need to continue treatment. Home Care: Take the prescribed acid isidro medication for the full course of treatment even if you begin to feel better sooner. This medication can take up to several days to fully control your symptoms. If you cant afford the prescribed medication, you can try ejbw-ala-mtrfmez acid blockers, such as Pepcid AC, Tagamet, Zantac, or Aciphex. If these do not relieve your symptoms, a stronger acid-isidro can be tried, such as Prilosec OTC. You can use antacids, such as Tums, Rolaids, Mylanta, or Maalox, for pain. This will be useful the first few days after starting acid blockers when the blockers havent started working yet. Follow the directions on the label. Liquid antacids may work better than tablets. Note that antacids can interfere with absorption of certain medications. Specifically, do not take Tagamet (cimetidine), Zantac (ranitidine), or Carafate (sucralfate) within 1 hour of taking an antacid. Talk with your pharmacist if you have any questions. Limit or avoid fatty, fried, and spicy foods, as well as coffee, chocolate, mint, and foods with high acid content such as tomatoes and citrus fruit and juices (orange, grapefruit, lemon). Avoid alcohol and smoking. Dont eat large meals, especially at night. Frequent, smaller meals are best. Do not lie down right after eating. And dont eat anything 3 hours before going to bed. If you are overweight, losing weight will reduce symptoms. Women should not wear corsets or girdles because this increases pressure on the stomach and worsens reflux. If your symptoms occur during sleep, use a foam wedge to elevate your upper body (not just your head.) Or, place 4" blocks under the head of your bed. Follow Up with your doctor or as advised by our staff. Further testing may be needed. If you do not begin to improve over the next 4 days, contact your doctor. If you had an x-ray, CT scan, or ECG (electrocardiogram), it will be reviewed by a specialist. Youll be notified of any new findings that affect your care. Get Prompt Medical Attention if any of the following occur: Stomach pain gets worse or moves to the lower right abdomen (appendix area) Chest pain appears or gets worse, or spreads to the back, neck, shoulder, or arm Frequent vomiting (cant keep down liquids) Blood in the stool or vomit (red or black in color) Feeling weak or dizzy, fainting, or trouble breathing Fever of 100.4F (38C) or higher, or as directed by your healthcare provider [place] Diet A bland diet is used for patients with an upset stomach. It consists of foods that are mild and easy to digest. It is better to eat small frequent meals rather than three large meals a day. BEVERAGES OK: Fruit juices, non-caffeinated teas and coffee, non-carbonated hartmann AVOID: Carbonated beverage, caffeinated tea and coffee, all alcoholic beverages BREAD OK: Refined white, wheat or rye bread, zoila or soda crackers, Erma toast, plain rolls, bagels AVOID: Whole-grain bread CEREAL OK: Refined cereals: cooked or ready to eat AVOID: Whole grain cereals and granola, or those containing bran, seeds or nuts DESSERTS OK: Peanut butter and all others except those to "avoid" AVOID: Chocolate, cocoa, coconut, popcorn, nuts, seeds, jam, marmalade FRUITS OK: Canned, cooked, frozen or fresh fruits without seeds or tough skin AVOID: Olives, skin and seeds of fruit MEATS OK: All fresh or preserved meat, fish and fowl AVOID: Any that are prepared with those spices to "avoid" CHEESE & EGGS OK: Eggs, cottage cheese, cream cheese, other cheeses AVOID: All cheeses made with those spices to "avoid" POTATOES & PASTA OK: Potato, rice, macaroni, noodles, spaghetti AVOID: None SOUPS OK: All soups without heavy seasoning AVOID: Soups made with those spices to "avoid" VEGETABLES OK: Canned, cooked, fresh or frozen mildly flavored vegetables without seeds, skins or coarse fiber AVOID: Vegetables prepared with those spices to "avoid"; skin and seeds of vegetables and those with coarse fiber SPICES OK: Salt, lemon and [place] juice, vinegar, all extracts, marina, cinnamon, thyme, mace, allspice, paprika AVOID: Finley powder, cloves, pepper, seed spices, garlic, gravy pickles, highly seasoned salad dressings Omeprazole Magnesium Gastro-resistant tablet What is this medicine? OMEPRAZOLE (oh ME pray zol) prevents the production of acid in the stomach. It is used to treat the symptoms of heartburn. You can buy this medicine without a prescription. This product is not for long-term use, unless otherwise directed by your doctor or health home care liaison. How should I use this medicine? Take this medicine by mouth. Follow the directions on the product label. If you are taking this medicine without a prescription, take one tablet every day. Do not use for longer than 14 days or repeat a course of treatment more often than every 4 months unless directed by a doctor or healthcare professional. Take your dose at regular intervals every 24 hours. Swallow the tablet whole with a drink of water. Do not crush, break or chew. This medicine works best if taken on an empty stomach 30 minutes before breakfast. If you are using this medicine with the prescription of your doctor or healthcare professional, follow the directions you were given. Do not take your medicine more often than directed. Talk to your animal daycare provider regarding the use of this medicine in children. Special care may be needed. What side effects may I notice from receiving this medicine? Side effects that you should report to your doctor or health home care liaison as soon as possible: allergic reactions like skin rash, itching or hives, swelling of the face, lips, or tongue bone, muscle or joint pain breathing problems chest pain or chest tightness dark yellow or brown urine diarrhea dizziness fast, irregular heartbeat feeling faint or lightheaded fever or sore throat muscle spasm palpitations redness, blistering, peeling or loosening of the skin, including inside the mouth seizures tremors unusual bleeding or bruising unusually weak or tired yellowing of the eyes or skin Side effects that usually do not require medical attention (Report these to your doctor or health home care liaison if they continue or are bothersome.): constipation dry mouth headache loose stools nausea What may interact with this medicine? Do not take this medicine with any of the following medications: atazanavir clopidogrel nelfinavir This medicine may also interact with the following medications: ampicillin certain medicines for anxiety or sleep certain medicines that treat or prevent blood clots like warfarin cyclosporine diazepam digoxin disulfiram iron salts phenytoin prescription medicine for fungal or yeast infection like itraconazole, ketoconazole, voriconazole saquinavir tacrolimus What if I miss a dose? If you miss a dose, take it as soon as you can. If it is almost time for your next dose, take only that dose. Do not take double or extra doses. Where should I keep my medicine? Keep out of the reach of children. Store at room temperature between 20 and 25 degrees C (68 and 77 degrees F). Protect from light and moisture. Throw away any unused medicine after the expiration date. What should I tell my health care provider before I take this medicine? They need to know if you have any of these conditions: black or bloody stools chest pain difficulty swallowing have had heartburn for over 3 months have heartburn with dizziness, lightheadedness or sweating liver disease stomach pain unexplained weight loss vomiting with blood wheezing an unusual or allergic reaction to omeprazole, other medicines, foods, dyes, or preservatives or trying to get breast-feeding What should I watch for while using this medicine? It can take several days before your heartburn gets better. Check with your doctor or health home care liaison if your condition does not start to get better, or if it gets worse. Do not treat diarrhea with over the counter products. Contact your doctor if you have diarrhea that lasts more than 2 days or if it is severe and watery. Do not treat yourself for heartburn with this medicine for more than 14 days in a row. You should only use this medicine for a 2-week treatment period once every 4 months. If your symptoms return shortly after your therapy is complete, or within the 4 month time frame, call your doctor or health home care liaison. You have been given the following additional information: Gastritis Vs. Ulcer GERD (Adult) Diet, [place] (Adult) Omeprazole Magnesium Gastro-resistant tablet (Electronically signed by Hitseh Evans MD 09/08/2016 3:07)
--- NOTE | 2016-09-08 03:07 | ED MED RECONCILIATION SUMMARY ---
Patient: PHILIPP SALAZAR Medication Reconciliation Report [facility] VisitID: [id number] [place] [address] 46y, M Registration Date/Time: 09/07/2016 Weight: 86.1 kg Height/Length: 67 in. BMI: 29.8 ALLERGIES: Hydrocodone The patient's Home Medications are listed below: THE FOLLOWING MEDICATIONS NEED TO BE RECONCILED: Zantac Oral The source(s) of the original Home Medication information: patient The following Medications were given to the patient in the Emergency Department: GI COCKTAIL RED [PO] PO 35 mL, administered: 09/07/2016 7:43:00 PM Demerol [IM] IM 50 mg, administered: 09/07/2016 9:21:00 PM Pantoprazole Sodium [PO] PO 40 mg, administered: 09/07/2016 10:20:00 PM The following Medications were prescribed to the patient: Prilosec 20 mg capsules: Take 1 capsule orally once daily. Dispense fifteen (15). No refills. Substitution is permissible. -- Hitesh Evans MD
== END 2016-09-07 22:30 | disposition home or self-care (01) ==
LOC: ED SRH 17:58
DX: K29.70 Gastritis, unspecified, without bleeding (principal); K21.9 Gastro-esophageal reflux disease without esophagitis; Z79.899 Other long term (current) drug therapy; F17.210 Nicotine dependence, cigarettes, uncomplicated; Z88.5 Allergy status to narcotic agent
CPT/HCPCS: 90100; 92235; 92530; 95059